=== PATIENT | female | born 2000 | race Caucasian/White ===

== ENCOUNTER 2019-03-11 20:10 | Emergency (ER) | payer OTHER ==
[~2019-03-11] VITALS: Ht 157.4 cm; Wt 79.4 kg
== END 2019-03-11 22:00 | disposition home or self-care (01) ==
LOC: ED 20:10
DX: S54.02XA Injury of ulnar nerve at forearm level, left arm, initial encounter (principal); X58.XXXA Exposure to other specified factors, initial encounter; Y93.89 Activity, other specified; Y92.89 Other specified places as the place of occurrence of the external cause; Y99.8 Other external cause status